=== PATIENT | male | born 2000 | race Caucasian/White ===

== ENCOUNTER 2021-11-13 19:13 | Emergency (ER) | payer BC, SELFPAY ==
[2021-11-13 19:27] VITALS: BP 132/78; PULSE 121; RESP 21; TEMP 38.6; O2SAT 97; BMI 37.2
--- NOTE | 2021-11-13 19:31 | DI.RAD.S_ITS ---
PROCEDURE: XR CHEST 1V INDICATIONS: suspected sepsis TECHNIQUE: One view of the chest was acquired. COMPARISON: None. FINDINGS: Surgical changes and devices: None. Lungs and pleura: Lungs are clear. No pleural effusions or pneumothorax. Mediastinum: Mediastinal contours appear normal. Heart size is normal. Bones and chest wall: No suspicious bony lesions. Overlying soft tissues appear unremarkable. IMPRESSION: No acute cardiopulmonary disease process. Dictated by: Viviana Leavitt MD, PhD on 11/13/2021 at 19:45 Approved by: Viviana Leavitt MD, PhD on 11/13/2021 at 19:45
[2021-11-13] MEDS: ACETAMINOPHEN 325 MG TABLET 975 MG PO (19:40)
[2021-11-13 19:45] LABS: COVID19 -Nasal RAPID POSITIVE (Negative)
[2021-11-13 20:30] VITALS: BP 138/73
[2021-11-13] MEDS: SODIUM CHLORIDE 0.9% 1,000 ML 1000 ML IV (20:43)
[2021-11-13 21:11] VITALS: PULSE 101; RESP 27; TEMP 36.6; O2SAT 98
--- NOTE | 2021-11-13 21:20 | ED.GENADULT ---
HPI - General Adult General Chief complaint: Upper Respiratory Symptoms Stated complaint: sent for meningitis r/o Time Seen by Provider: 11/13/21 20:17 Source: patient Mode of arrival: Ambulatory History of Present Illness HPI narrative: Patient is a 21-year-old male here for evaluation of a fever, headache, neck stiffness, cough body aches. Is been going on for the past 24-36 hours. Was concerned about meningitis given his symptoms. Patient is not vaccinated against COVID-19. No rashes. Has not tried for symptoms prior to arrival. Related Data Previous Rx's Medication Instructions Recorded baclofen 10 mg tablet 10 mg PO TID #60 tab 07/18/21 hydrocodone 5 mg-acetaminophen 300 1 tab PO Q6H PRN #10 tab 07/18/21 mg tablet diclofenac sodium 3 % topical gel 1 applic TOPICAL BID #100 g 07/19/21 lidocaine 5 % topical patch 1 patch TOPICAL DAILY #15 ea 07/19/21 Allergies Allergy/AdvReac Type Severity Reaction Status Date / Time hydrocodone Allergy Hives Verified 11/13/21 19:26 Review of Systems Constitutional Constitutional: Reports body ache(s), Reports fatigue, Reports headache(s) and Reports lethargy ENT Ears, Nose, Mouth, and Throat: Reports headache(s) Cardiovascular Cardiovascular: Denies chest pain Respiratory Respiratory: Reports cough Musculoskeletal Musculoskeletal: Reports system reviewed and no additional complaints, except as documented Integumentary/Breasts Skin/Breast: Reports system reviewed and no additional complaints, except as documented Neurologic Neurologic: Reports headache(s) Endocrine Endocrine: Reports fatigue Hematologic/Lymphatic On Anticoagulants: No Patient History Medical History GERD (gastroesophageal reflux disease) (~2016) Family History (Updated 08/22/21 @ 22:02 by Magui Bethea) Father Diabetes mellitus Social History Smoking Status: Never smoker Smoking Status: Never smoker tobacco type: smokeless tobacco Substance Use Type: does not use Exam Initial Vital Signs Initial Vital Signs: Vital Signs Temperature 101.4 F H 11/13/21 19:27 Pulse Rate 121 H 11/13/21 19:27 Respiratory Rate 21 11/13/21 19:27 Blood Pressure 132/78 11/13/21 19:27 Pulse Oximetry 97 11/13/21 19:27 Const General: cooperative, comfortable and well developed [facility] Head: normal to inspection and normocephalic Neck Neck: normal visual inspection and no meningeal signs Resp Effort & Inspection: normal respiratory effort Cardio Rate: tachycardic Rhythm: regular rhythm Skin General: no rashes or lesions noted Neuro General: patient alert, patient awake, patient oriented x3 and moves all extremities Extrem General: normal to inspection and capillary refill normal Psych Appearance: grossly normal and well kempt Course Orders Ordered: ED Orders 11/13/21 19:31 XR chest 1V Stat EKG-12 Lead Stat RT Consult Eval and Treat NOW 11/13/21 19:35 COVID19 -Nasal swab/Pre-Proc Stat Discontinued Medications Acetaminophen (Acetaminophen 325 Mg Tablet) 975 mg PO NOW ONE Stop: 11/13/21 19:38 Last Admin: 11/13/21 19:40 Dose: 975 mg Documented by: GUSTABO Al Hydrox/Mg Hydrox/Simethicone 20 ml/ Lidocaine HCl 15 ml 0 ml PO NOW ONE Stop: 11/13/21 21:22 Last Admin: 11/13/21 21:38 Dose: 15 ml Documented by: ELVIRA Sodium Chloride (Normal Saline 0.9%) 1,000 mls @ 1,000 mls/hr IV BOLUS ONE Stop: 11/13/21 20:30 Last Infusion: 11/13/21 21:38 Dose: 0 mls/hr Documented by: Admin: 11/13/21 20:43 Dose: 1,000 mls/hr Documented by: ELVIRA Pantoprazole Sodium (Pantoprazole 40 Mg Vial) 40 mg IV NOW ONE Stop: 11/13/21 21:22 Last Admin: 11/13/21 21:38 Dose: 40 mg Documented by: ELVIRA Vital Signs Vital signs: Vital Signs - 8 hr 11/13/21 19:27 11/13/21 20:30 11/13/21 21:11 Temperature 101.4 F H 97.8 F Pulse Rate 121 H 101 H Respiratory Rate 21 27 H Blood Pressure 132/78 138/73 Pulse Oximetry 97 98 11/13/21 21:30 11/13/21 21:35 Temperature 97.8 F Pulse Rate 100 H Respiratory Rate 25 H Blood Pressure Pulse Oximetry 97 Medical Decision Making Lab Data Lab results reviewed: Yes I reviewed the patient's lab results. Labs: Lab Results 11/13/21 Range/Units 19:35 SARS-CoV-2 (PCR) Positive H (Negative) Urine Dip Bedside Urine Glucose Negative Bedside Urine Bilirubin - Negative Bedside Urine Ketone - Negative Urine Specific [place] 1.030 Bedside Urine Occult Blood - Negative Bedside Urine pH 6.0 Bedside Urine Protein - Negative Bedside Urine Urobilinogen - Negative Bedside Urine Nitrite - Negative Bedside Urine Leukocytes - Negative Esterase Point of care testing: Urine Dip Bedside Urine Glucose Negative Bedside Urine Bilirubin - Negative Bedside Urine Ketone - Negative Urine Specific [place] 1.030 Bedside Urine Occult Blood - Negative Bedside Urine pH 6.0 Bedside Urine Protein - Negative Bedside Urine Urobilinogen - Negative Bedside Urine Nitrite - Negative Bedside Urine Leukocytes - Negative Esterase Imaging Data Chest x-ray: Radiologist's Impression: [address] [address] XRay Report Signed Patient: Eric Bryant MR#: [id number] : 2000 Acct:[id number] Age/Sex: 21 / M Date of Service: 11/13/21 Loc: ED Accession Number: [id number] ?? Procedure: XR chest 1V Ordering Provider: Denton Dueñas D.O. PROCEDURE:? XR CHEST 1V ? INDICATIONS:? suspected sepsis ? TECHNIQUE:? One view of the chest was acquired.? ? COMPARISON:? None. ? FINDINGS:? ? Surgical changes and devices:? None.? ? Lungs and pleura:? Lungs are clear.? No pleural effusions or pneumothorax.? ? Mediastinum:? Mediastinal contours appear normal.? Heart size is normal.? ? Bones and chest wall:? No suspicious bony lesions.? Overlying soft tissues appear unremarkable.? ? IMPRESSION:? No acute cardiopulmonary disease process. ? ? Dictated by: Viviana Leavitt MD, PhD on 11/13/2021 at 19:45 ? ? Approved by: Viviana Leavitt MD, PhD on 11/13/2021 at 19:45 ECG Data Attestation: I personally reviewed and interpreted this ECG as follows: Prior ECG tracings: available for review Interpretation: Sinus tachycardia Ventricular rate 128 Normal axis Normal QRS Normal QTC No ST T wave changes MDM Narrative Medical decision making narrative: Patient is COVID positive and this does fit with his clinical presentation. I have low suspicion for meningitis. Is given Tylenol and his heart rate and fever improved. Discussed return precautions and follow-up instructions. He expressed understanding and agreement. Discharge Plan Departure Patient Disposition: Home Clinical Impression: COVID-19 Instructions: DI for COVID-19 (Suspected or Confirmed ) Activity Restrictions/Additional Instructions: Be sure to increase your fluid intake. You can take Tylenol for any fevers. I do recommend you start a medication called Pepcid/famotidine. You can purchase this [id number]-ddvirid. It is an as-needed medicine for reflux/heartburn. Contact your primary doctor for a follow-up. Return to the emergency department for any new or worsening symptoms. Prescriptions: No Action baclofen 10 mg tablet 10 mg PO TID Qty: 60 0RF hydrocodone-acetaminophen 5-300 mg tablet 1 tab PO Q6H PRN (Reason: pain) Qty: 10 0RF Rx Instructions: take only as needed for pain not relieved by ibuprofen and baclofen lidocaine 5 % adhesive patch,medicated 1 patch topical DAILY Qty: 15 0RF Rx Instructions: leave on most painful area for up to 12 hrs diclofenac sodium 3 % gel 1 applic topical BID Qty: 100 1RF Rx Instructions: apply to affect area bid Referrals: Charlie Oneill, [Primary Care Provider] -
[2021-11-13 21:30] VITALS: PULSE 100; RESP 25; O2SAT 97
[2021-11-13 21:35] VITALS: TEMP 36.6
[2021-11-13] MEDS: MAG HYDROX/ALUMINUM/SIMETH SUS 20 ML, LIDOCAINE VISCOUS 2% 15 ML PO (21:38)
[2021-11-13] MEDS: PANTOPRAZOLE 40 MG VIAL IV (21:38)
== END 2021-11-13 21:51 | disposition home or self-care (01) ==
PROVIDERS: Emergency Provider Emergency Medicine; PCP Family Medicine
DX: U07.1 COVID-19 (principal); R00.0 Tachycardia, unspecified
CPT/HCPCS: 71045; 81003; 87635; 93005; 96361; 96374; 99284; C9803; C9113

== ENCOUNTER → 2022-07-11 09:04 | Outpatient (CLI) | payer BC, SELFPAY ==
[2022-07-11 20:03] LABS: Hemoglobin A1C% w Est Avg Glu 5.2 % (4.0-6.0)
[2022-07-11 20:39] LABS: Blood Urea Nitrogen 13 mg/dL (9-20); Calcium 9.4 mg/dL (8.4-10.2); Carbon Dioxide 28 mmol/L (22-32); Chloride 105 mmol/L (98-107); Cholesterol 170 mg/dL (140-199); Estimated Glomerular Filt Rate > 60 mL/min (>60); Glucose 87 mg/dL (70-100); HDL Cholesterol 38 mg/dL (40-60); HEMOLYSIS < 15 (0-50); LDL Cholesterol Calculated 88 mg/dL (<100); Potassium 4.5 mmol/L (3.4-5.1); Sodium 141 mmol/L (137-145); Triglycerides 222 mg/dL (35-150)
== END ==
PROVIDERS: PCP Family Medicine; Visit Provider Family Medicine
DX: E66.01 Morbid (severe) obesity due to excess calories (principal); E78.5 Hyperlipidemia, unspecified; R73.9 Hyperglycemia, unspecified; Z68.41 Body mass index [BMI] 40.0-44.9, adult
CPT/HCPCS: 80048; 80061; 83036